=== PATIENT | female | born 1965 | race Caucasian/White ===

== ENCOUNTER 2017-01-06 10:44 | Emergency (ER) | payer BC ==
[2017-01-06] MEDS ORDERED: Sodium Chloride 0.9% 10 ML Syringe FLUSH PRN (10:50)
[2017-01-06 11:05] VITALS: BP 124/94
--- NOTE | 2017-01-06 11:12 | CT ---
Head CT Technique: Multiple axial sections through the brain were obtained. Intravenous contrast not utilized. Comparison: No previous intracranial imaging is available. Findings: Ventricles along with basal cisterns and sulci over the convexities are within normal limits for the patient's age. No abnormal parenchymal densities are seen. No evidence of intracranial hemorrhage. No midline shift or mass effect is seen. Bone window settings were reviewed which shows the visualized sinuses to appear clear. No acute calvarial abnormality is seen. Impression: 1. No abnormality is identified on noncontrast head CT study. Diagnostic code #1
--- NOTE | 2017-01-06 13:55 | EDM.PDOC ---
ED HPI GENERAL MEDICAL PROBLEM - General Chief Complaint: Neurological Problem Stated Complaint: [facility] Time Seen by Provider: 01/06/17 10:49 Source of Information: Reports: Patient, EMS, Family History Limitations: Reports: No Limitations - History of Present Illness INITIAL COMMENTS - FREE TEXT/NARRATIVE: The patient presents by [facility]. She had a migraine this morning and she took some amatryptaline and phenergan and her headache was better. 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 She brought the student back to her class and then she got dizzy and had to sit down and had chest pain. EMS was called and they said she had a hard time finding her words and she was a little confused. She presented to the ER with a headache. Her chest pain was gone. She denies numbness but she had some generalized weakness. She denies fever but she has chills. She has no chest pain now. She has no abdominal pain, nausea or vomiting. She has not missed any doses of her medication and she did not take more of her medication. This has never happened to her before. She did have an MRI this summer for the headaches and that looked good. Last time known well was 9am. Onset: Sudden Duration: Hour(s): Location: Reports: Head Quality: Reports: Ache Severity: Moderate Improves with: Reports: None Worsens with: Reports: None Associated Symptoms: Reports: Chest Pain, Fever/Chills, Headaches. 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/IO Headache Pain Score (Numeric/FACES): 5 - Related Data Allergies Allergy/AdvReac Type Severity Reaction Status Date / Time Calcium Channel Blocking Allergy Anaphylactic Verified 01/06/17 11:09 Agents-Dih Shock Penicillins Allergy Difficulty Verified 01/06/17 11:09 Breathing Home Meds: Home Meds ALPRAZolam [Xanax] 2 mg PO QPM 01/06/17 [History] Gabapentin [Neurontin] 2,400 mg PO QAM 01/06/17 [History] Gabapentin [Neurontin] 400 mg PO QPM 01/06/17 [History] Levothyroxine [Synthroid] 50 mcg PO ACBREAKFAST #30 tablet 01/06/17 [Rx] Ondansetron HCl [Zofran] 4 mg PO TID PRN 01/06/17 [History] Promethazine [Phenergan] 25 mg PO TID PRN 01/06/17 [History] Propranolol [Inderal] 40 mg PO QPM 01/06/17 [History] QUEtiapine [SEROquel] 150 mg PO QAM 01/06/17 [History] Venlafaxine [Effexor XR] 225 mg PO QAM 01/06/17 [History] Past Medical History HEENT History: Reports: Impaired Vision 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 Denies: Fever HEENT: Reports: No Symptoms Respiratory: Reports: No Symptoms Cardiovascular: Reports: Chest Pain Endocrine: Reports: No Symptoms GI/Abdominal: Reports: No Symptoms : Reports: No Symptoms Musculoskeletal: Reports: No Symptoms Skin: Reports: No Symptoms Neurological: Reports: Dizziness, Headache ED EXAM, NEURO - Physical Exam Exam: See Below Exam Limited By: No Limitations General Appearance: Alert, No Apparent Distress Ears: Normal External Exam Nose: Normal Inspection Head Exam: Atraumatic, Normocephalic Neck: Normal Inspection Respiratory/Chest: No Respiratory Distress, Lungs Clear, Normal Breath Sounds Cardiovascular: Regular Rate, Rhythm, No Edema, No Murmur GI/Abdominal: Soft, Non-Tender, No Organomegaly, No Mass Neurological: Alert, No Motor/Sensory Deficits, Oriented x 3 EKG INTERPRETATION EKG Date: 01/06/17 Time: 11:11 Rhythm: NSR Rate (Beats/Min): 83 [place]: Normal P-Wave: Present QRS: Normal ST-T: Normal QT: Normal Course - Vital Signs Last Recorded V/S: Last Vital Signs Temp 98.4 F 01/06/17 10:45 Pulse 84 01/06/17 10:45 Resp 13 01/06/17 10:45 BP 124/94 H 01/06/17 10:45 Pulse Ox 98 01/06/17 10:45 - Orders/Labs/Meds Orders: Active Orders 24 hr Category Date Time Status Cardiac Monitoring [RC] . DIRECTED Care 01/06/17 10:50 Active EKG Documentation Completion [RC] STAT Care 01/06/17 10:51 Active Oxygen Therapy [RC] PRN Care 01/06/17 10:50 Active Peripheral IV Care [RC] . DIRECTED Care 01/06/17 10:51 Active FREE T3 [REF] Stat Lab 01/06/17 11:20 Received Peripheral IV Insertion Adult [OM.PC] Stat Oth 01/06/17 10:50 Ordered Labs: Laboratory Tests 01/06/17 01/06/17 01/06/17 Range/Units 10:43 11:20 11:20 WBC 7.26 (3.98-10.04) K/mm3 RBC 4.44 (3.98-5.22) M/mm3 Hgb 13.5 (11.2-15.7) gm/L Hct 41.3 (34.1-44.9) % MCV 93.0 (79.4-94.8) fl MCH 30.4 (25.6-32.2) pg MCHC 32.7 (32.2-35.5) g/dl RDW Std Deviation 45.0 (36.4-46.3) fL Plt Count 362 (182-369) K/mm3 MPV 9.4 (9.4-12.3) fl Neut % (Auto) 55.7 (34.0-71.1) % Lymph % (Auto) 28.7 (19.3-51.7) % [place] % (Auto) 6.7 (4.7-12.5) % Eos % (Auto) 7.0 H (0.7-5.8) Baso % (Auto) 0.7 (0.1-1.2) % Neut # (Auto) 4.04 (1.56-6.13) K/mm3 Lymph # (Auto) 2.08 (1.18-3.74) K/mm3 [place] # (Auto) 0.49 H (0.24-0.36) K/mm3 Eos # (Auto) 0.51 H (0.04-0.36) K/mm3 Baso # (Auto) 0.05 (0.01-0.08) K/mm3 Sodium 141 (136-145) mEq/L Potassium 4.2 (3.5-5.1) mEq/L Chloride 104 (98-107) mEq/L Carbon Dioxide 27 (21-32) mEq/L Anion Gap 14.2 (5-15) BUN 22 H (7-18) mg/dL Creatinine 1.0 (0.55-1.02) mg/dL Est Cr Clr Drug Dosing 59.89 mL/min Estimated GFR (MDRD) 58 (>60) mL/min BUN/Creatinine Ratio 22.0 H (14-18) Glucose 86 (74-106) mg/dL POC Glucose 77 (70-105) mg/dL Calcium 9.1 (8.5-10.1) mg/dL Total Bilirubin 0.3 (0.2-1.0) mg/dL AST 16 (15-37) U/L ALT 28 (14-59) U/L Alkaline Phosphatase 119 H (46-116) U/L Troponin I < 0.017 (0.00-0.056) ng/mL Total Protein 7.0 (6.4-8.2) g/dl Albumin 3.7 (3.4-5.0) g/dl Globulin 3.3 gm/dL Albumin/Globulin Ratio 1.1 (1-2) Free T4 (0.76-1.46) ng/dL TSH 3rd Generation 6.225 H (0.358-3.74) uIU/mL Urine Color (Yellow) Urine Appearance (Clear) Urine pH (5.0-8.0) Ur Specific [place] (1.005-1.030) Urine Protein (Negative) Urine Glucose (UA) (Negative) Urine Ketones (Negative) Urine Occult Blood (Negative) Urine Nitrite (Negative) Urine Bilirubin (Negative) Urine Urobilinogen (0.2-1.0) Ur Leukocyte Esterase (Negative) Urine RBC (0-5) /hpf Urine WBC (0-5) /hpf Ur Epithelial Cells (0-5) /hpf Urine Bacteria (FEW) /hpf Urine Mucus (FEW) /hpf Urine Opiates Screen (NEGATIVE) Ur Buprenorphine Scrn (NEGATIVE) Ur Oxycodone Screen (NEGATIVE) Urine Methadone Screen (NEGATIVE) Ur Propoxyphene Screen (NEGATIVE) Ur Barbiturates Screen (NEGATIVE) Ur Tricyclics Screen (NEGATIVE) Ur Phencyclidine Scrn (NEGATIVE) Ur Amphetamine Screen (NEGATIVE) U Methamphetamines Scrn (NEGATIVE) U Benzodiazepines Scrn (NEGATIVE) U Cocaine Metab Screen (NEGATIVE) U Marijuana (THC) Screen (NEGATIVE) Ethyl Alcohol 0.00 (0.00) gm% 01/06/17 01/06/17 01/06/17 Range/Units 11:20 11:35 11:35 WBC (3.98-10.04) K/mm3 RBC (3.98-5.22) M/mm3 Hgb (11.2-15.7) gm/L Hct (34.1-44.9) % MCV (79.4-94.8) fl MCH (25.6-32.2) pg MCHC (32.2-35.5) g/dl RDW Std Deviation (36.4-46.3) fL Plt Count (182-369) K/mm3 MPV (9.4-12.3) fl Neut % (Auto) (34.0-71.1) % Lymph % (Auto) (19.3-51.7) % [place] % (Auto) (4.7-12.5) % Eos % (Auto) (0.7-5.8) Baso % (Auto) (0.1-1.2) % Neut # (Auto) (1.56-6.13) K/mm3 Lymph # (Auto) (1.18-3.74) K/mm3 [place] # (Auto) (0.24-0.36) K/mm3 Eos # (Auto) (0.04-0.36) K/mm3 Baso # (Auto) (0.01-0.08) K/mm3 Sodium (136-145) mEq/L Potassium (3.5-5.1) mEq/L Chloride (98-107) mEq/L Carbon Dioxide (21-32) mEq/L Anion Gap (5-15) BUN (7-18) mg/dL Creatinine (0.55-1.02) mg/dL Est Cr Clr Drug Dosing mL/min Estimated GFR (MDRD) (>60) mL/min BUN/Creatinine Ratio (14-18) Glucose (74-106) mg/dL POC Glucose (70-105) mg/dL Calcium (8.5-10.1) mg/dL Total Bilirubin (0.2-1.0) mg/dL AST (15-37) U/L ALT (14-59) U/L Alkaline Phosphatase (46-116) U/L Troponin I (0.00-0.056) ng/mL Total Protein (6.4-8.2) g/dl Albumin (3.4-5.0) g/dl Globulin gm/dL Albumin/Globulin Ratio (1-2) Free T4 0.62 L (0.76-1.46) ng/dL TSH 3rd Generation (0.358-3.74) uIU/mL Urine Color Yellow (Yellow) Urine Appearance Clear (Clear) Urine pH 5.5 (5.0-8.0) Ur Specific [place] > or = 1.030 (1.005-1.030) Urine Protein Negative (Negative) Urine Glucose (UA) Negative (Negative) Urine Ketones Negative (Negative) Urine Occult Blood Negative (Negative) Urine Nitrite Negative (Negative) Urine Bilirubin Negative (Negative) Urine Urobilinogen 0.2 (0.2-1.0) Ur Leukocyte Esterase Negative (Negative) Urine RBC Not seen (0-5) /hpf Urine WBC 0-5 (0-5) /hpf Ur Epithelial Cells 0-5 (0-5) /hpf Urine Bacteria Many H (FEW) /hpf Urine Mucus Not seen (FEW) /hpf Urine Opiates Screen Negative (NEGATIVE) Ur Buprenorphine Scrn Negative (NEGATIVE) Ur Oxycodone Screen Negative (NEGATIVE) Urine Methadone Screen Negative (NEGATIVE) Ur Propoxyphene Screen Negative (NEGATIVE) Ur Barbiturates Screen Negative (NEGATIVE) Ur Tricyclics Screen Presumptive positive H (NEGATIVE) Ur Phencyclidine Scrn Negative (NEGATIVE) Ur Amphetamine Screen Negative (NEGATIVE) U Methamphetamines Scrn Negative (NEGATIVE) U Benzodiazepines Scrn Presumptive positive H (NEGATIVE) U Cocaine Metab Screen Negative (NEGATIVE) U Marijuana (THC) Screen Negative (NEGATIVE) Ethyl Alcohol (0.00) gm% Meds: Medications Discontinued Medications Generic Name Dose Route Start Last Admin Trade Name Freq PRN Reason Stop Dose Admin Sodium Chloride 10 ml 01/06/17 10:50 01/06/17 11:29 Saline Flush FLUSH 10 ml ASDIRECTED PRN Administration Keep Vein Open - Re-Assessments/Exams Free Text/Narrative Re-Assessment/Exam: 01/06/17 17:21 A stroke alert was called and I went right into the room. He last time known well was 9am. I ordered an EKG, labs, and a CT of her head. She is back to normal now. Her CT shows no acute changes. Her CBC and CMP look good. Her TSH was elevated at 6.225. Her Free T4 was low at 0.62. Her ETOH was negative and her UDS was positive for tricyclics and benzos. She is doing good now. 01/06/17 17:25 She is hypothyroid. I feel the episode this morning was from anxiety and her migraine. I will start her on some levothyroxine. Departure - Departure Time of Disposition: 13:50 Disposition: Home, Self-Care 01 Condition: Good Clinical Impression: Confusion Hypothyroidism Qualifiers: Hypothyroidism type: unspecified Qualified Code(s): E03.9 - Hypothyroidism, unspecified Chest pain Qualifiers: Chest pain type: unspecified Qualified Code(s): R07.9 - Chest pain, unspecified Migraine Qualifiers: Migraine type: unspecified Status migrainosus presence: without status migrainosus Intractability: not intractable Qualified Code(s): G43.909 - Migraine, unspecified, not intractable, without status migrainosus - Discharge Information Prescriptions: Levothyroxine [Synthroid] 50 mcg PO ACBREAKFAST #30 tablet Instructions: Confusion, Hypothyroidism, Nonspecific Chest Pain, [id number], Migraine Headache Referrals: PCP,Not In Area [Primary Care Provider] - Forms: ED Department Discharge Additional Instructions: Take your medication as prescribed. Take the levothyroxine 50mg daily. Follow up with your provider within 1 week. Please return if you are worse. - My Orders Last 24 Hours: My Active Orders 01/06/17 10:50 Cardiac Monitoring [RC] . DIRECTED Oxygen Therapy [RC] PRN Peripheral IV Insertion Adult [OM.PC] Stat 01/06/17 10:51 EKG Documentation Completion [RC] STAT Peripheral IV Care [RC] . DIRECTED 01/06/17 11:20 FREE T3 [REF] Stat - Assessment/Plan Last 24 Hours: My Active Orders 01/06/17 10:50 Cardiac Monitoring [RC] . DIRECTED Oxygen Therapy [RC] PRN Peripheral IV Insertion Adult [OM.PC] Stat 01/06/17 10:51 EKG Documentation Completion [RC] STAT Peripheral IV Care [RC] . DIRECTED 01/06/17 11:20 FREE T3 [REF] Stat
--- NOTE | 2017-01-06 14:04 | CR ---
Chest: Frontal view of the chest was obtained. Comparison: No previous study. Heart size is normal. Mild tortuosity of the thoracic aorta is seen. Lungs are clear. Bony structures are grossly intact. Impression: 1. Nothing acute is identified on frontal chest x-ray. Diagnostic code #1
== END 2017-01-06 14:52 | disposition home or self-care (01) ==
LOC: MERGE 10:44 → EDBD 10:44 → JD.ED 10:44
DX: G43.909 Migraine, unspecified, not intractable, without status migrainosus (principal); R07.9 Chest pain, unspecified; R41.0 Disorientation, unspecified; E03.9 Hypothyroidism, unspecified; Z88.0 Allergy status to penicillin; Z88.8 Allergy status to other drugs, medicaments and biological substances
CPT/HCPCS: 36415; 70450; 71010; 80053; 80306; 81001; 82962; 84439; 84443; 84481; 84484; 85025; 93005; 99285; G0480; J7050; 93010

== ENCOUNTER 2017-07-10 19:05 | Emergency (ER) | payer BC ==
[2017-07-10 19:17] VITALS: BP 133/89
[2017-07-10] MEDS ORDERED: Ketorolac 30 MG/ML SDV IVPUSH ONE (19:54)
[2017-07-10] MEDS ORDERED: Famotidine 20 MG/2 ML SDV IVPUSH ONE (19:55)
--- NOTE | 2017-07-10 20:01 | EDM.PDOC ---
ED HPI GENERAL MEDICAL PROBLEM - General Chief Complaint: Behavioral/Psych Stated Complaint: [facility] Time Seen by Provider: 07/10/17 19:57 Source of Information: Reports: Patient History Limitations: Reports: No Limitations - History of Present Illness INITIAL COMMENTS - FREE TEXT/NARRATIVE: 51-year-old female arrives via [facility] for evaluation and treatment of multiple different complaints. [facility] intercepted with Jake. Reportedly around 1700 patient describes feeling like she had a "an allergic reaction". She states that she felt burning sensation from the inside. Reports feeling hot and burning. She states that she had chest tightness and shortness of breath. At 1720 she began to feel faint. She took 100 mg of Benadryl by mouth. En route, by the ambulance, they felt she was having panic attack and they gave her 4 mg of Versed. They also gave her formal grams Zofran as she did vomit en route to the ER. She also received a 325 mg aspirin. She is currently complaining of numbness to her head, face and left foot. She also reports that she continues to have burning pain throughout her entire body. She states that the chest tightness and shortness of breath has since improved. She is still feeling lightheaded but has not had any syncope. She reports that she has migraines and had a migraine last night. She took her normal migraine medications. She took the other triptan this morning. She reports that lights and sounds are currently bothersome but states she is always sensitive to lights and sounds. Patient reports that she has had a panic attack before. Primary care provider is in [place]. Onset: Today, Sudden Chest Pain Score (Numeric/FACES): 10 - Related Data Allergies Allergy/AdvReac Type Severity Reaction Status Date / Time Penicillins Allergy Severe Anaphylactic Verified 06/27/16 17:17 CDT Shock Calcium Channel Blocking Allergy Anaphylactic Verified 06/27/16 17:17 CDT Agents-Dih Shock Home Meds: Home Meds ALPRAZolam [Xanax] 2 mg PO BEDTIME 03/01/14 [History] Gabapentin [Neurontin] 4 tab PO BID 03/01/14 [History] Promethazine [Phenergan] 25 mg PO Q6H PRN 03/01/14 [History] Venlafaxine [Effexor] 150 tab PO DAILY 03/01/14 [History] Rizatriptan Benzoate [Rizatriptan] 1 tab PO Q6H PRN 07/28/14 [History] Ferrous Sulfate [Iron Supplement] 1 tab PO DAILY 01/12/15 [History] Propranolol [Inderal] 40 mg PO QPM 01/06/17 [History] QUEtiapine [SEROquel] 150 mg PO BEDTIME 01/06/17 [History] Past Medical History HEENT History: Reports: Impaired Vision 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 Musculoskeletal History: degenerative disc disease Neurological History: Reports: Migraines Psychiatric History: Reports: Anxiety, Depression - Past Surgical History GI Surgical History: Reports: Cholecystectomy Female Surgical History: Reports: Section, Hysterectomy Social & Family History - Family History Family Medical History: Noncontributory Neurological: Reports: Alzheimers Disease - Tobacco Use Smoking Status *Q: Never Smoker - Caffeine Use Caffeine Use: Reports: Soda - Recreational Drug Use Recreational Drug Use: No ED ROS GENERAL - Review of Systems Review Of Systems: See Below Constitutional: Reports: Other (reports feeling hot and burning). Denies: Fever , Chills HEENT: Denies: Ear Pain, Throat Pain Respiratory: Reports: Shortness of Breath (ealier, now resolved), Cough Cardiovascular: Reports: Chest Pain (reports chest tightness earlier, now resolved) GI/Abdominal: Reports: Nausea, Vomiting. Denies: Abdominal Pain Neurological: Reports: Headache (h/o migraines), Numbness (top of head, right face, left foor), Tingling (generalized) ED EXAM, GENERAL - Physical Exam Exam: See Below Exam Limited By: No Limitations General Appearance: Alert, WD/WN, No Apparent Distress Eye Exam: Bilateral Eye: Normal Inspection Ears: Normal External Exam, Normal Canal, Hearing Grossly Normal Ear Exam: Left Ear: TM normal (left obscured by cerumen) Nose: Normal Inspection Throat/Mouth: Normal Inspection, Normal Lips, Normal Oropharynx, Normal Voice, No Airway Compromise Head: Atraumatic, Normocephalic Neck: Normal Inspection, Full Range of Motion Respiratory/Chest: No Respiratory Distress, Lungs Clear, Normal Breath Sounds Cardiovascular: Normal Peripheral Pulses, Regular Rate, Rhythm, No Murmur Peripheral Pulses: 2+: Posterior Tibial (L), Posterior Tibial (R), Dorsalis Pedis (L), Dorsalis Pedis (R) GI/Abdominal: Normal Bowel Sounds, Soft, Non-Tender Neurological: Alert, Oriented, Normal Cognition Psychiatric: Normal Affect, Normal Mood Skin Exam: Warm, Dry, Normal Color EKG INTERPRETATION EKG Date: 07/10/17 Time: 20:05 Rhythm: NSR Rate (Beats/Min): 72 [place]: Normal P-Wave: Present QRS: Normal ST-T: Normal QT: Normal EKG Interpretation Comments: NSR at [address]/T abnormality. Reviewed by myself and Dr. Lindsay Christian. Course - Vital Signs Last Recorded V/S: Last Vital Signs Temp 37.3 C 07/10/17 19:16 Pulse 72 07/10/17 19:16 Resp 19 07/10/17 19:16 BP 133/89 07/10/17 19:16 Pulse Ox 97 07/10/17 19:16 - Orders/Labs/Meds Orders: Active Orders 24 hr Category Date Time Status Cardiac Monitoring [RC] . DIRECTED Care 07/10/17 19:54 Active EKG Documentation Completion [RC] ASDIRECTED Care 07/10/17 19:54 Active Chest 2V [CR] Stat Exams 07/10/17 19:54 Taken EKG 12 Lead [EK] Stat Ther 07/10/17 19:54 Ordered Labs: Laboratory Tests 07/10/17 07/10/17 07/10/17 Range/Units 20:08 20:08 20:08 WBC 6.61 (3.98-10.04) K/mm3 RBC 4.42 (3.98-5.22) M/mm3 Hgb 13.2 (11.2-15.7) gm/L Hct 40.4 (34.1-44.9) % MCV 91.4 (79.4-94.8) fl MCH 29.9 (25.6-32.2) pg MCHC 32.7 (32.2-35.5) g/dl RDW Std Deviation 43.2 (36.4-46.3) fL Plt Count 321 (182-369) K/mm3 MPV 9.7 (9.4-12.3) fl Neut % (Auto) 64.9 (34.0-71.1) % Lymph % (Auto) 24.1 (19.3-51.7) % [place] % (Auto) 7.1 (4.7-12.5) % Eos % (Auto) 2.6 (0.7-5.8) Baso % (Auto) 0.8 (0.1-1.2) % Neut # (Auto) 4.30 (1.56-6.13) K/mm3 Lymph # (Auto) 1.59 (1.18-3.74) K/mm3 [place] # (Auto) 0.47 H (0.24-0.36) K/mm3 Eos # (Auto) 0.17 (0.04-0.36) K/mm3 Baso # (Auto) 0.05 (0.01-0.08) K/mm3 Sodium 142 (136-145) mEq/L Potassium 3.6 (3.5-5.1) mEq/L Chloride 107 (98-107) mEq/L Carbon Dioxide 27 (21-32) mEq/L Anion Gap 11.6 (5-15) BUN 14 (7-18) mg/dL Creatinine 1.0 (0.55-1.02) mg/dL Est Cr Clr Drug Dosing 59.89 mL/min Estimated GFR (MDRD) 58 (>60) mL/min BUN/Creatinine Ratio 14.0 (14-18) Glucose 109 H (74-106) mg/dL Calcium 8.5 (8.5-10.1) mg/dL Magnesium 2.0 (1.8-2.4) mg/dl Total Bilirubin 0.3 (0.2-1.0) mg/dL AST 19 (15-37) U/L ALT 45 (14-59) U/L Alkaline Phosphatase 125 H (46-116) U/L Troponin I < 0.017 (0.00-0.056) ng/mL Total Protein 6.7 (6.4-8.2) g/dl Albumin 3.7 (3.4-5.0) g/dl Globulin 3.0 gm/dL Albumin/Globulin Ratio 1.2 (1-2) Free T4 (0.76-1.46) ng/dL TSH 3rd Generation 10.867 H (0.358-3.74) uIU/mL 07/10/17 Range/Units 20:08 WBC (3.98-10.04) K/mm3 RBC (3.98-5.22) M/mm3 Hgb (11.2-15.7) gm/L Hct (34.1-44.9) % MCV (79.4-94.8) fl MCH (25.6-32.2) pg MCHC (32.2-35.5) g/dl RDW Std Deviation (36.4-46.3) fL Plt Count (182-369) K/mm3 MPV (9.4-12.3) fl Neut % (Auto) (34.0-71.1) % Lymph % (Auto) (19.3-51.7) % [place] % (Auto) (4.7-12.5) % Eos % (Auto) (0.7-5.8) Baso % (Auto) (0.1-1.2) % Neut # (Auto) (1.56-6.13) K/mm3 Lymph # (Auto) (1.18-3.74) K/mm3 [place] # (Auto) (0.24-0.36) K/mm3 Eos # (Auto) (0.04-0.36) K/mm3 Baso # (Auto) (0.01-0.08) K/mm3 Sodium (136-145) mEq/L Potassium (3.5-5.1) mEq/L Chloride (98-107) mEq/L Carbon Dioxide (21-32) mEq/L Anion Gap (5-15) BUN (7-18) mg/dL Creatinine (0.55-1.02) mg/dL Est Cr Clr Drug Dosing mL/min Estimated GFR (MDRD) (>60) mL/min BUN/Creatinine Ratio (14-18) Glucose (74-106) mg/dL Calcium (8.5-10.1) mg/dL Magnesium (1.8-2.4) mg/dl Total Bilirubin (0.2-1.0) mg/dL AST (15-37) U/L ALT (14-59) U/L Alkaline Phosphatase (46-116) U/L Troponin I (0.00-0.056) ng/mL Total Protein (6.4-8.2) g/dl Albumin (3.4-5.0) g/dl Globulin gm/dL Albumin/Globulin Ratio (1-2) Free T4 0.67 L (0.76-1.46) ng/dL TSH 3rd Generation (0.358-3.74) uIU/mL Meds: Medications Discontinued Medications Generic Name Dose Route Start Last Admin Trade Name Corie PRN Reason Stop Dose Admin Famotidine 20 mg 07/10/17 19:55 07/10/17 20:12 Pepcid IVPUSH 07/10/17 19:56 20 mg ONETIME ONE Administration Ketorolac Tromethamine 30 mg 07/10/17 19:54 07/10/17 20:11 Toradol IVPUSH 07/10/17 19:55 30 mg ONETIME ONE Administration - Radiology Interpretation Free Text/Narrative:: chest xray shows no acute intrathoracic process. - Re-Assessments/Exams Free Text/Narrative Re-Assessment/Exam: 07/10/17 21:49 I reviewed the labs, ekg and imaging with the patient. Review of her records from December, showed that she was hypothyroid at that time. Patient's was started on levothyroxine but after 3 weeks it greatly worsened her migraines and therefore it was decided that she stop it. Plan will be to have her follow up with her family practice provider for additional testing. I did educate her that there are other options other than levothyroxine out there. This is likely the cause of the majority of her symptoms tonight. She expresses understanding. Discharge instructions as documented. Departure - Departure Time of Disposition: 21:53 Disposition: Home, Self-Care 01 Condition: Fair Clinical Impression: Hypothyroidism Qualifiers: Hypothyroidism type: unspecified Qualified Code(s): E03.9 - Hypothyroidism, unspecified - Discharge Information Instructions: Hypothyroidism Referrals: PCP,Not In Area [Primary Care Provider] - Odilia Holloway NP [Ordering Only Provider] - Forms: ED Department Discharge Additional Instructions: Follow-up with your primary care provider this week or next week for further evaluation. You may require additional testing and possibly imaging to further evaluate your thyroid. In the meantime, I recommend you drink plenty of fluids and rest. Please return to the ER if your symptoms change or worsen. - My Orders Last 24 Hours: My Active Orders 07/10/17 19:54 Cardiac Monitoring [RC] . DIRECTED EKG Documentation Completion [RC] ASDIRECTED Chest 2V [CR] Stat EKG 12 Lead [EK] Stat - Assessment/Plan Last 24 Hours: My Active Orders 07/10/17 19:54 Cardiac Monitoring [RC] . DIRECTED EKG Documentation Completion [RC] ASDIRECTED Chest 2V [CR] Stat EKG 12 Lead [EK] Stat
--- NOTE | 2017-07-11 14:14 | CR ---
Chest: Two views of the chest were obtained. Comparison: No prior chest x-ray. Heart size is normal. Tortuous thoracic aorta is seen. Slight parenchymal density within the left mid lung is seen. Lungs otherwise are clear. Bony structures appear within normal limits for the patient's age. Impression: 1. Slight parenchymal density within left mid lung most likely due to scarring or atelectasis. 2. Nothing acute is otherwise seen on two-view chest x-ray. Diagnostic code #3
== END 2017-07-10 22:00 | disposition home or self-care (01) ==
LOC: JD.ED 19:05
DX: E03.9 Hypothyroidism, unspecified (principal); R20.0 Anesthesia of skin; R06.02 Shortness of breath; R07.89 Other chest pain; F41.9 Anxiety disorder, unspecified; F32.9 Major depressive disorder, single episode, unspecified; Z88.0 Allergy status to penicillin; Z88.8 Allergy status to other drugs, medicaments and biological substances; Z79.899 Other long term (current) drug therapy
CPT/HCPCS: 36415; 71046; 80053; 83735; 84439; 84443; 84484; 85025; 93005; 96374; 96375; 99285; J1885; 93010; 99284